=== PATIENT | female | born 1975 | race Caucasian/White ===

== ENCOUNTER → 2022-06-07 17:01 | Outpatient (CLI) | payer OTHER, SELFPAY ==
--- NOTE | ~2022-06-07 | MR_ITS ---
EXAMINATION: MR knee LT wo con DATE: 06/07/2022 17:37 INDICATION: Left knee pain. TECHNIQUE: Magnetic resonance imaging (MRI) of the left knee was performed without intravenous contra st. Sequences included axial PD-weighted FS FSE, coronal PD-weighted FSE and PD-weighted FS FSE, sagi ttal PD-weighted FSE, and sagittal T2-weighted FS FSE. COMPARISON: None. FINDINGS: Medial compartment: There is a radial tear of posterior horn and posterior root of medial meniscus. There is extrusion of the body segment. There is partial-thickness cartilage loss of tibial condyle, deep at the medial an d anterior articular surface where there is moderate subchondral edema-like marrow signal intensity. There is partial-thickness cartilage loss of femoral condyle, deep at the medial and central articula r surface with moderate subchondral edema-like marrow signal intensity. Osteophytes are noted. Lateral compartment: Lateral meniscus is normal. Lateral compartment cartilage is normal. Osteophytes are noted. Patellofemoral compartment: There is severe partial thickness cartilage loss of patellar lateral facet and deep partial thickness cartilage loss of patellar median ridge with mild subchondral edema-like marrow signal intensity. Th ere is cartilage surface irregularity of trochlea. Osteophytes are noted. Ligaments and tendons: The anterior and posterior cruciate ligaments are normal. Medial collateral ligament and lateral essie ateral ligament complex are normal. The patellar tendon is normal. Fluid: There is a small knee joint effusion. There is a 15 x 7 x 7 mm ganglion cyst anterior to lateral tibi al condyle. There are chronic partial tears of the origins of medial and lateral heads of gastrocnemi us with ganglion cysts. There is trace fluid in a Bhatt's cyst. IMPRESSION: 1. Severe chondrosis of patellofemoral compartment and moderate chondrosis of medial compartment. 2. Tear of medial meniscus. 3. Small knee joint effusion. Reviewed, dictated and finalized at location E. IMPRESSION: 1. Severe chondrosis of patellofemoral compartment and moderate chondrosis of m edial compartment. 2. Tear of medial meniscus. 3. Small knee joint effusion.
== END ==
PROVIDERS: PCP Nurse Practitioner Family; Visit Provider Nurse Practitioner Family
DX: M25.462 Effusion, left knee (principal); S83.242A Other tear of medial meniscus, current injury, left knee, initial encounter; X58.XXXA Exposure to other specified factors, initial encounter; G47.00 Insomnia, unspecified
CPT/HCPCS: 73721

== ENCOUNTER 2022-08-27 08:25 | Outpatient (CLI) | payer OTHER, SELFPAY ==
--- NOTE | ~2022-08-27 | XR_ITS ---
XR knee RT min 4V DATE: 08/27/2022 08:56 INDICATION: Right knee pain TECHNIQUE: [place], lateral and weightbearing AP and PA views COMPARISON: None FINDINGS: Moderately prominent periarticular spurring at the patellofemoral compartment. Mild particu lar spurring at the lateral compartment. No fracture or dislocation or joint effusion is detected. No radiopaque intra-articular loose body or chondrocalcinosis. No periosteal reaction or bone destruc tion. IMPRESSION: Mild to moderate osteoarthritis Reviewed, dictated and finalized at location L.
--- NOTE | ~2022-08-27 | XR_ITS ---
XR knee LT min 4V DATE: 08/27/2022 08:56 INDICATION: Bilateral knee pain TECHNIQUE: [place], lateral and weightbearing AP and PA views COMPARISON: 06/07/2022 Left knee MR examination FINDINGS: Very small suprapatellar knee joint effusion is suggested. There is severe narrowing of the medial compartment joint space. There is periarticular spurring at t he lateral and patellofemoral compartments. No fracture or dislocation, periosteal reaction or bone destruction. No radiopaque intra-articular lo ose body or chondrocalcinosis is noted. IMPRESSION: Tricompartment osteoarthritis, most severe at the medial compartment Reviewed, dictated and finalized at location L. IMPRESSION: Tricompartment osteoarthritis, most severe at the medial compartmen t
== END 2022-08-27 08:26 | disposition home or self-care (01) ==
LOC: CHSIMG 08:28
PROVIDERS: PCP Family Medicine; Visit Provider Orthopaedic Surgery
DX: M25.561 Pain in right knee (principal); M25.562 Pain in left knee; M17.0 Bilateral primary osteoarthritis of knee
CPT/HCPCS: 73564

== ENCOUNTER → 2022-10-05 09:36 | Outpatient (CLI) | payer OTHER, SELFPAY ==
--- NOTE | ~2022-10-05 | MR_ITS ---
EXAMINATION: MR knee RT wo con DATE: 10/05/2022 10:35 INDICATION: Anteromedial right knee pain TECHNIQUE: Magnetic resonance imaging (MRI) of the right knee was performed without intravenous contr ast. Sequences included coronal PD-weighted FSE, coronal PD-weighted FS FSE, sagittal T2-weighted FS E, sagittal PD-weighted FS FSE and axial PD weighted fat saturated FSE. COMPARISON: Right knee radiographs dated 08/27/2022 FINDINGS: Medial compartment: Full or near full-thickness radial tear at the posterior root of the medial meniscus. Deep chondral u lceration and with underlying edema-like signal change at the anterior weightbearing medial femoral c ondyle and anterior aspect of the medial tibial plateau. Additional deep fissuring without degenerati ve subchondral changes at the central weightbearing medial femoral condyle. Lateral compartment: Lateral meniscus is normal. Chondral fissuring with underlying subarticular edema-like signal change at the posterior aspect of the lateral tibial plateau. Patellofemoral compartment: Deep chondral ulceration and fissuring with underlying subarticular edema-like signal change involvin g significant portion of the lateral patellar facet and central aspect of the apical ridge. There is additional deep chondral ulceration with underlying cortical irregularity and edema-like signal martines e at the caudal aspect of the medial trochlea. Ligaments and tendons: Anterior and posterior cruciate ligaments are normal. The medial collateral ligament and fibular essie ateral ligament complex are normal. The extensor mechanism is normal. The visualized medial and later al hamstring tendons as well as the iliotibial band are normal. Fluid: Physiologic amount of fluid in the joint space. No loose osteochondral bodies identified. Osseous/other: 2.2 x 1.4 x 1.3 cm T2 hyperintense lesion with irregular margins and surrounding small linear low sig nal intensity region seen with appearance most consistent with osteonecrosis. Small low signal intens ity bone island at the head of the fibula. No fracture or other pathologic marrow replacing process. IMPRESSION: 1. Full-thickness near full-thickness radial tear at the posterior root of the medial meniscus. 2. Tricompartmental osteoarthritis, mild to moderate severity with high-grade chondral malacia medial compartment and mild with additional regions of high-grade chondral malacia in the lateral and alaniz lofemoral compartments. Reviewed, dictated and finalized at location A. IMPRESSION: 1. Full-thickness near full-thickness radial tear at the posterior root of the medial meniscus. 2. Tricompartmental osteoarthritis, mild to moderate severity with high-grade c hondral malacia medial compartment and mild with additional regions of high-gra de chondral malacia in the lateral and patellofemoral compartments.
== END ==
PROVIDERS: PCP Orthopaedic Surgery; Visit Provider Orthopaedic Surgery
DX: S83.241D Other tear of medial meniscus, current injury, right knee, subsequent encounter (principal); X58.XXXD Exposure to other specified factors, subsequent encounter; M17.11 Unilateral primary osteoarthritis, right knee
CPT/HCPCS: 73721

== ENCOUNTER 2022-12-25 01:28 | Day surgery (SDC) | payer OTHER, SELFPAY ==
[2022-12-20 15:11] VITALS: BMI 29.0
--- NOTE | 2022-12-20 15:44 | PC.NURSE ---
Report to the Outpatient Waiting Room, entrance under the green pavilion located off [facility], at time 9am on date 12/25/22 Planned Procedure Time: 11am Time changes happen often and if your time is changed the preop area will call you the afternoon before. - You and your visitor will be asked to self-screen and do not enter if you have any COVID symptoms. - A mask is optional within the hospital at this time. Patients may have clear liquids (water, carbonated beverages, clear teas, apple juice) until 3 hours prior to surgery with a maximum of 20 ounces. stop at 6am - No food from midnight until time of surgery Take the following medications with a SIP of water the morning of surgery: _levothyroxine DO NOT STOP ANY OF YOUR OTHER PRESCRIPTION MEDICATIONS PRIOR TO SURGERY ?EXCEPT THE FOLLOWING Medications to discontinue per physician Ozempic was stopped 12/06 do not restart Please no make-up, nail italian, hairspray, perfume, deodorant, or body powder the day of surgery. No jewelry (including any body piercings) or valuables the day of surgery, leave them at home. Please take a shower or bath the night before, or the morning of, surgery with an antibacterial soap. Wear comfortable, loose fitting clothing. Children are encouraged to wear pajamas. - Jewelry must be removed prior to entering the operating room. Rings and piercings that are not removed may be cut off. - The hospital will not accept responsibility for valuables. - Please leave all valuables, including medications, at home the day of surgery. If you are going home after surgery, a licensed transit bus driver must drive you home. - NO public transportation without another adult if you receive anesthesia. - We recommend that an adult stay with you for 24 hours following discharge. - We also recommend that you do not drive, make important decision, drink alcoholic beverages, or take any drugs that were not prescribed by your health care provider for at least 24 hours after your discharge time. Follow any additional instructions given to you from your surgeon. If you or anyone in your household have experienced Covid symptoms in the past week, please notify your surgeon or the nurse liaison at the phone number below for possible testing. Telephone instructions given to and asked if any additional questions and then verbalized understanding. Patient advised to call surgeon office or pre surgery nurse liaison [phone] if any additional questions.
[2022-12-25] VITALS (8 sets, daily range): BP systolic 111–130; BP diastolic 65–88; PULSE 77–89; RESP 12–15; TEMP 36.9; O2SAT 100
--- NOTE | 2022-12-25 07:13 | WPDHPUPDATE1 ---
History and Physical Update Update Date/Time: 12/25/22 07:13 History and Physical has been reviewed, including an updated exam of the patient. There are NO changes in the patient's condition. Risks, benefits, and alternatives have been discussed and questions answered. Patient agrees to proceed with procedure.
[2022-12-25] MEDS: LACTATED RINGERS 1,000 ML 30 ML IV CONT ×2 (09:50→13:54)
[2022-12-25] MEDS: ACETAMINOPHEN 500 MG TABLET 1000 MG PO (09:50)
--- NOTE | 2022-12-25 10:00 | P.PNAN_ITS ---
Anes - Initial Pre Proc Eval Procedure: Operation Date: 12/25/22 11:00 Proposed Procedures p Left Knee Arthroscopy, Proceed As Indicated - Mendel Hernandez MD Date/Time: 12/25/22 10:00 Surgeon: Mendel Hernandez MD Pre Op Diagnosis: left knee medial meniscus tear Patient Data Age: 47 Gender: F Height: 1.7 m Weight: 84 kg Allergies Allergy/AdvReac Type Severity Reaction Status Date / Time adhesive tape AdvReac Verified 12/20/22 15:00 Home Medications Medication Instructions Recorded Confirmed Type cyanocobalamin (vitamin B-12) 1,000 mcg subcut WEEKLY 08/29/22 12/20/22 History 1,000 mcg/mL injection solution drospirenone (contraceptive) 4 mg 1 tablet PO DAILY 08/29/22 12/20/22 History (28) tablet (Slynd) levothyroxine 175 mcg capsule 175 mcg PO DAILY 08/29/22 12/20/22 History (Tirosint) pramipexole 0.5 mg tablet (Mirapex) 0.5 mg PO BID 08/29/22 12/20/22 History semaglutide 0.25 mg or 0.5 mg (2 0.25 mg subcut WEEKLY 08/29/22 12/20/22 History mg/3 mL) subcutaneous pen injector (Ozempic) trospium 20 mg tablet 20 mg PO DAILY 08/29/22 12/20/22 History chlorhexidine gluconate 4 % 1 applic topical ONCE #237 mL 12/16/22 12/20/22 Rx topical liquid (Hibiclens) Patient hx anesthesia problems: none Family hx anesthesia problems: none Results Review: All pre-operative results and documents have been reviewed as part of the pre- operative evaluation. [facility] Past Medical History Medical History (Updated 12/25/22 @ 10:02 by Wellington Smith MD) TMJ disease hx of surgery Surgical History Surgical History (Updated 12/25/22 @ 10:02 by Wellington Smith MD) History of section History of cholecystectomy Social History Social History Smoking status: Never smoker Substance use: never Substance use type: does not use Living arrangements: with family Gender identity (if verbalized by the patient): Female Spiritual care concerns: No Anes - Eval Final PreProcedure Day of Procedure 12/25/22 10:00 Patient weight: overweight Heart: regular rate and rhythm Lungs: clear to auscultation Airway: Mallampati scale class 1 Neurological: alert and oriented Last oral intake: >/= 8 hours ASA classification: II Emergent: no Anesthetic plan: proceed Anesthesia type and monitoring: general LMA and standard monitoring Results Review: All pre-operative results and documents have been reviewed as part of the pre- operative evaluation. Informed Consent: The patient's anesthetic plan and its attendant risks and benefits were discussed with the patient/family/POA. Questions were solicited and answers provided to the satisfaction of the patient/family/POA.
[2022-12-25] MEDS: ceFAZolin 2 GM/D5W 50 ML 2 GM/50 ML BAG IVPB (11:56)
[2022-12-25] MEDS: BUPivacaine HCL 0.5% PF 30 ML VIAL INFILTRATE (12:40)
--- NOTE | 2022-12-25 13:30 | P.OP_ITS ---
Procedure Note - Detailed Date of Procedure 12/25/22 Pre-op Diagnosis left knee medial meniscus tear Post-op Diagnosis Same Procedure Performed LEFT KNEE SCOPE WITH ABRASION ARTHROPLASTY/MICRO FRACTURE TO THE MEDIAL AND PATELLO FEMORAL COMPARTMENTS, PARTIAL MEDIAL MENISCECTOMY AND MAJOR SYNOVECTOMY Surgeon Mendel Hernandez MD Anesthesia General Description of Procedure PATIENT WAS TAKEN TO THE OR. THE LEFT LEG WAS PREPPED AND DRAPED STERILE. TROCARS WERE PLACED IN THE USUAL FASHION. CAMERA WAS INTRODUCED. THERE WAS CHONDROMALACIA TO THE PATELLA FEMORAL JOINT. THERE WAS A LOT OF SYNOVITIS IN ALL COMPARTMENTS. THE MEDIAL COMPARTMENT SHOWED CHONDROMALACIA TO THE MEDIAL FEMORAL CONDYLE. THERE WERE 2 AREAS OF FULL THICKNESS CARTILAGE DEFECTS ON THE MEDIAL FEMORAL CONDYLE AND ONE ON THE MEDIAL PLATEAU. THERE WAS A COMPLEX TEAR TO THE POSTERIOR HORN OF THE MENISCUS. A SHAVER WAS USED TO PREFORM A CHONDRO PLASTY. NEXT FREDA PICKS WERE USED TO PREFORM AN ABRASION ARTHROPLASTY/MICRO FRACTURE TO THE DEFECTS. THERE WAS GOOD BLEEDING BONE FROM THE MICRO FRACTURE SITES. THE MEDIAL MENISCUS TEAR WAS RESECTED WITH A BITER AND A SHAVER DOWN TO A SMOOTH BASE. THE ACL WAS INTACT. THE LATERAL MENISCUS WAS NOT TORN. THE LATERAL COMPARTMENT HAD MINIMAL CHONDROMALACIA. CHONDROPLASTY WAS PREFORMED. A SYNOVECTOMY WAS PREFORMED WELL. THE PATELLO FEMORAL JOINT UNDERWENT CHONDROPLASTY. THERE WAS A FULL THICKNESS DEFECT TO THE LATERAL FACET OF THE PATELLA. ABRASION ARTHROPLASTY /MICRO FRACTURE WAS PREFORMED UNTIL THERE WAS GOOD BLEEDING BONE. THERE WAS GRADE 2 CHONDROMALACIA IN PART OF THE TROCHLEA. SYNOVECTOMY WAS PREFORMED IN THE SUPERIOR MEDIAL COMPARTMENT. THE WOUNDS WERE APPROXIMATED WITH 4.0 NYLON. STERILE DRESSING WAS APPLIED. PATIENT WAS EXTUBATED. Estimated Blood Loss 5 Complications No immediate complications Condition Stable Disposition PACU
[2022-12-25] MEDS: fentaNYL CITRATE INJ (*CRX) 100 MCG/2 ML VIAL 25 MCG IV PUSH ×7 (13:37→15:04)
--- NOTE | 2022-12-25 13:46 | SUR.PHASEI ---
1345: Simple mask removed.
[2022-12-25] MEDS: ONDANSETRON INJ 4 MG/2 ML VIAL IV PUSH (14:26)
[2022-12-25] MEDS: diphenhydrAMINE HCl INJ 50 MG/ML VIAL 25 MG IV PUSH (14:57)
[2022-12-25] MEDS: SCOPOLAMINE 1.5 MG PATCH TRANSDERM (14:57)
[2022-12-25] MEDS: oxyCODONE HCL (*CRX) 5 MG TAB IR PO (15:08)
== END 2022-12-25 16:01 | disposition home or self-care (01) ==
PROVIDERS: PCP Family Medicine; Visit Provider Orthopaedic Surgery
PROC: (CPT 29870; principal; 2022-12-25 11:00)
DX: S83.232A Complex tear of medial meniscus, current injury, left knee, initial encounter (principal); M65.862 Other synovitis and tenosynovitis, left lower leg; M94.262 Chondromalacia, left knee; Z79.85 Long-term (current) use of injectable non-insulin antidiabetic drugs; Z98.890 Other specified postprocedural states
CPT/HCPCS: 29881; 29879; 29876; A9270; J0690; J1100; J1200; J1885; J2250; J2405; J2704; J3010; J7120

== ENCOUNTER 2024-01-07 13:38 | Outpatient (CLI) | payer OTHER, SELFPAY ==
--- NOTE | ~2024-01-07 | CT_ITS ---
EXAMINATION: CT abdomen pelvis wo/w con DATE: 01/07/2024 14:23 INDICATION: Disorder of adrenal gland TECHNIQUE: Computed tomography (CT) of the abdomen and pelvis was performed without and with 100 mL O mnipaque-350 intravenous contrast utilizing a standard adrenal mass protocol. Automated exposure cont rol and iterative reconstruction technique were employed. The dose-length product was 1242.61 mGy-cm. COMPARISON: None FINDINGS: Lung bases are clear. Heart size is normal. No pericardial or pleural effusion. Moderate-sized slidin g-type hiatal hernia. Cholecystectomy clips the gallbladder fossa. Liver, pancreas, bilateral adrenal glands and kidneys are normal. No adrenal masses identified. 7 mm splenic cyst and small splenic so cification consistent with old granulomatous disease. Bowels including the appendix are normal. Bladd er, uterus and bilateral adnexa are unremarkable. Likely dropped clip in the pelvis. No free intraper itoneal gas or fluid. No pathologically enlarged abdominal or pelvic lymphadenopathy. Chronic appeari ng mild likely physiologic anterior wedging at T12 and L1. Moderate lower thoracic spondylosis. Sever e disc height loss with prominent Modic type III sclerotic endplate changes at L1-L2 and with minimal Modic type III scarring endplate changes at L5-S1. IMPRESSION: 1. Normal adrenal glands with no adrenal mass. 2. Moderate-sized sliding-type hiatal hernia. Reviewed, dictated and finalized at location A. [employer] WORKER
== END 2024-01-07 13:39 | disposition home or self-care (01) ==
PROVIDERS: PCP Family Medicine; Visit Provider Internal Medicine Endocrinology, Diabetes & Metabolism
DX: E27.9 Disorder of adrenal gland, unspecified (principal); K44.9 Diaphragmatic hernia without obstruction or gangrene
CPT/HCPCS: 74178; Q9967